=== PATIENT | female | born 1950 | race Two or more races ===

== ENCOUNTER 2021-07-01 16:27 | Emergency (ER) | payer MEDICAID, OTHER ==
[~2021-07-01] VITALS: Ht 154.9 cm; Wt 90.7 kg
[2021-07-01 16:31] VITALS: BP 149/95
[2021-07-01] MEDS ORDERED: IBUP800T27 PO (19:52)
[2021-07-01] MEDS ORDERED: KETOROLAC TROMETH 30 MG/ML 1ML VIAL IM ONE (20:15)
== END 2021-07-01 22:27 | disposition home or self-care (01) ==
LOC: ER 16:29
DX: S46.912A Strain of unspecified muscle, fascia and tendon at shoulder and upper arm level, left arm, initial encounter (principal); E66.9 Obesity, unspecified; Z68.37 Body mass index [BMI] 37.0-37.9, adult; W01.0XXA Fall on same level from slipping, tripping and stumbling without subsequent striking against object, initial encounter; Y93.89 Activity, other specified; Y92.89 Other specified places as the place of occurrence of the external cause; Y99.8 Other external cause status
CPT/HCPCS: 72040; 73030; 73130; 96372; 99284; J1885

== ENCOUNTER 2023-09-21 22:02 | Emergency (ER) | payer MEDICAID ==
[~2023-09-21] VITALS: Ht 154.9 cm; Wt 86.0 kg
[2023-09-21 22:02] VITALS: BP 154/71; PULSE 91; RESP 20; O2SAT 96
[~2023-09-21 22:02] MED LIST: CEPH500C PO; IBUP-1456 PO
[2023-09-22] MEDS: CYCLOBENZAPRINE HCL 10 MG TAB PO ONE (00:08)
[2023-09-22] MEDS: KETOROLAC TROMETH 60MG/2ML VIAL IM ONE (00:08)
[2023-09-22] MEDS ORDERED: CYCL-837 PO (00:23)
== END 2023-09-22 00:55 | disposition home or self-care (01) ==
LOC: ER 22:02
DX: S16.1XXA Strain of muscle, fascia and tendon at neck level, initial encounter (principal); E11.9 Type 2 diabetes mellitus without complications; E78.5 Hyperlipidemia, unspecified; X58.XXXA Exposure to other specified factors, initial encounter; Y93.89 Activity, other specified; Y92.89 Other specified places as the place of occurrence of the external cause; Y99.8 Other external cause status
CPT/HCPCS: 96372; 99283; J1885